=== PATIENT | female | born 1965 | race Caucasian/White ===

== ENCOUNTER → 2022-12-29 11:15 | Outpatient (CLI) | payer MEDICAID, SELFPAY ==
[2022-12-29 15:02] LABS: Amphetamine/Metha Screen,Urine Negative ng/ml (<1000); Barbiturates Screen,Urine Negative ng/ml (<200)
[2022-12-29 15:04] LABS: Benzodiazepines Screen,Urine Negative ng/ml (<200)
[2022-12-29 15:05] LABS: Cannabinoid Screen,Urine Positive ng/ml (<50); Cocaine Screen,Urine Negative ng/ml (<300)
[2022-12-29 15:06] LABS: Methadone Screen,Urine Negative ng/ml (<300)
[2022-12-29 15:07] LABS: Opiate Screen,Urine Positive ng/ml (<300); Phencyclidine Screen,Urine Negative ng/ml (<25)
== END ==
PROVIDERS: PCP Emergency Medicine; Visit Provider Emergency Medicine
DX: M79.2 Neuralgia and neuritis, unspecified (principal)
CPT/HCPCS: 80305

== ENCOUNTER → 2023-01-13 21:23 | Outpatient (CLI) | payer MEDICAID, SELFPAY ==
[2023-01-13 15:21] LABS: Phencyclidine Screen,Urine Negative ng/ml (<25)
[2023-01-13 15:29] LABS: Amphetamine/Metha Screen,Urine Negative ng/ml (<1000)
[2023-01-13 15:30] LABS: Barbiturates Screen,Urine Negative ng/ml (<200)
[2023-01-13 15:31] LABS: Benzodiazepines Screen,Urine Negative ng/ml (<200); Cannabinoid Screen,Urine Positive ng/ml (<50)
[2023-01-13 15:32] LABS: Cocaine Screen,Urine Negative ng/ml (<300); Opiate Screen,Urine Negative ng/ml (<300)
[2023-01-13 15:33] LABS: Methadone Screen,Urine Negative ng/ml (<300)
== END ==
PROVIDERS: PCP Emergency Medicine; Visit Provider Emergency Medicine
DX: Z79.899 Other long term (current) drug therapy (principal)
CPT/HCPCS: 80305

== ENCOUNTER → 2023-01-22 14:02 | Outpatient (CLI) | payer MEDICAID, SELFPAY | PROVIDERS: PCP Emergency Medicine; Visit Provider Nurse Practitioner Family | DX: R00.2 Palpitations (principal) | CPT/HCPCS: 93225; 93226 ==

== ENCOUNTER 2023-03-03 15:54 | Emergency (ER) | payer MEDICAID, SELFPAY ==
[2023-03-03] VITALS (7 sets, daily range): BP systolic 146–166; BP diastolic 89–110; PULSE 56–77; RESP 15–20; TEMP 36.8; O2SAT 93–99; BMI 22.9
--- NOTE | 2023-03-03 15:54 | ECG_ITS ---
APPROVED REPORT Exam: Resting ECG HR:79 bpm ECG Measurements Heart Rate 79 AXES IA 144 P 72 QRSd 85 QRS 75 QT 364 T 71 QTc 398 Conclusion SINUS RHYTHM POSSIBLE LEFT ATRIAL ENLARGEMENT [-0.1mV P-WAVE IN V1/V2] BORDERLINE ECG UNCONFIRMED REPORT Electronically signed by : Nikhil Alejo MD 03/03/2023 21:16:35
--- NOTE | 2023-03-03 15:59 | CT_ITS ---
PROCEDURE INFORMATION: Exam: CT Head Without Contrast Exam date and time: 03/03/2023 4:57 PM Age: 57 years old Clinical indication: Pain; Headache TECHNIQUE: Imaging protocol: Computed tomography of the head without contrast. Radiation optimization: All CT scans at this facility use at least one of these dose optimization techniques: automated exposure control; mA and/or kV adjustment per patient size (includes targeted exams where dose is matched to clinical indication); or iterative reconstruction. REPORTING DATA: Count of CT and Cardiac NM exams in prior 12 months: This patient has received 0 known CTs and 0 known cardiac nuclear medicine studies in the 12 months prior to the current study. COMPARISON: No relevant prior studies available. FINDINGS: Brain: Normal. No hemorrhage. Unremarkable white matter. No mass effect. Cerebral ventricles: No ventriculomegaly. Paranasal sinuses: Visualized sinuses are unremarkable. No fluid levels. Mastoid air cells: Visualized mastoid air cells are well aerated. Bones/joints: Unremarkable. No acute fracture. Soft tissues: Unremarkable. IMPRESSION: No acute intracranial abnormality.
--- NOTE | 2023-03-03 15:59 | XR_ITS ---
PROCEDURE INFORMATION: Exam: XR Chest Exam date and time: 03/03/2023 5:14 PM Age: 57 years old Clinical indication: Pain; Shortness of breath; Chest pressure; Additional info: SOA TECHNIQUE: Imaging protocol: Radiologic exam of the chest. Views: 1 view. COMPARISON: No relevant prior studies available. FINDINGS: Lungs: Hyperinflation and increased interstitial markings suggestive of COPD. Pleural spaces: Unremarkable. No pleural effusion. No pneumothorax. Heart/Mediastinum: Unremarkable. No cardiomegaly. Bones/joints: Unremarkable. IMPRESSION: Hyperinflation and increased interstitial markings suggestive of COPD.
--- NOTE | 2023-03-03 16:57 | HMH.EDGENADL ---
Discharge Plan Disposition Patient Disposition: Home, Self-Care Prescriptions Prescriptions: New naproxen 500 mg tablet 500 mg PO Q12H PRN (Reason: pain) Qty: 14 0RF No Action ondansetron 4 mg tablet,disintegrating 4 mg PO Q8H PRN multivitamin Tablet 1 tab PO DAILY albuterol sulfate 0.63 mg/3 mL solution for nebulization 0.63 mg inhalation QID PRN Incruse Ellipta 62.5 mcg/actuation blister with device 1 inh inhalation DAILY Qty: 30 2RF albuterol sulfate 90 mcg/actuation HFA aerosol inhaler 1 inh inhalation QID Qty: 8.5 3RF sumatriptan succinate [Imitrex] 100 mg tablet See Rx Instructions PO .COMPLEX Qty: 10 2RF Rx Instructions: take 1 tab at onset of headache; if no relief, may repeat 1 tab after at least 2 hrs; max = 2 tabs/24 hrs PO hydrocodone-acetaminophen 5-325 mg tablet 1 tab PO TID Qty: 90 0RF escitalopram oxalate [Lexapro] 10 mg tablet 10 mg PO DAILY Qty: 30 1RF citalopram 10 mg tablet See Rx Instructions .ROUTE .COMPLEX Qty: 14 0RF Dose Instruction: TAKE 1 TABLET BY MOUTH EVERY DAY AT BEDTIME FOR 14 DAYS Rx Instructions: TAKE 1 TABLET BY MOUTH EVERY DAY AT BEDTIME FOR 14 DAYS [id number]-[id number] [Fioricet] 50-300-40 mg capsule 1 cap PO Q8H PRN (Reason: headache) Qty: 10 0RF pregabalin [Lyrica] 200 mg capsule 200 mg PO TID Qty: 90 0RF clonazepam [Klonopin] 0.5 mg tablet 0.5 mg PO BID Qty: 60 0RF Referrals Follow up/Referrals: Clay Sanchez MD [Primary Care Provider] - See instructions Activity Restrictions/Add. Instructions Additional Instructions/Restrictions: Follow-up for further management with your primary care physician within the next few days. Otherwise return to the emergency room for worsening pain headache or any other concerns within the next 8 hours Clinical Impressions Clinical Impression: Headache, Chest pain Discharge ED Provider: Rigo Bird Adult [facility] General Chief complaint: Chest Pain Stated complaint: Chest Pain Time Seen by Provider: 03/03/23 16:00 Mode of Arrival: Ambulatory Source of Information: Patient Limitations: No Limitations Description of Symptoms (Recalled from ER Triage Doc. by RN): 57 F presents for 1 day of left sided chest pain after lifting a heavy bucket of water from the bathtub yesterday. Patient reports when the sharp pain started it shot to her left armpit. Since yesterday the pain has become worse, especially with movement. Patient also reports nausea and headache. History of Present Illness HPI narrative: 57-year-old female with history of anxiety presents with left-sided chest pain after lifting a heavy bucket of water yesterday. She has a dull headache as well nonradiating not severe and not thunderclap in onset. No fever or neck stiffness. She says the pain is worse in her chest with movement tender palpation on the left side of her chest. No direct trauma to her chest. No coughing up blood or radiation of the pain to her back. Related Data Home Medications Medication Instructions Recorded Confirmed albuterol sulfate 0.63 mg/3 mL 0.63 mg inhalation QID PRN 11/25/22 01/22/23 solution for nebulization multivitamin 1 tab PO DAILY 11/25/22 01/22/23 ondansetron 4 mg disintegrating 4 mg PO Q8H PRN 11/25/22 01/22/23 tablet Previous Rx's Medication Instructions Recorded hydrocodone 5 mg-acetaminophen 325 1 tab PO TID #90 tabs 01/13/23 mg tablet citalopram 10 mg tablet See Rx Instructions .Route 01/14/23 .COMPLEX #14 tabs escitalopram oxalate 10 mg tablet 10 mg PO DAILY #30 tabs 01/14/23 (Lexapro) albuterol sulfate 90 mcg/actuation 1 inh inhalation QID #8.5 grams 01/22/23 aerosol inhaler sumatriptan succinate 100 mg See Rx Instructions PO .COMPLEX 01/22/23 tablet (Imitrex) #10 tabs umeclidinium 62.5 mcg/actuation 1 inh inhalation DAILY #30 ea 01/22/23 blister powder for inhalation (Incruse Ellipta) butalbital-acetam
--- NOTE | 2023-03-03 17:01 | PC.NURSE ---
Addendum entered by Liat Milton, ALEX 03/03/23 17:01: ct no xray Original Note: pt at xray
--- NOTE | 2023-03-03 17:02 | PC.NURSE ---
pt arrived back to room from ct
--- NOTE | 2023-03-03 17:07 | PC.NURSE ---
pt ambulated to restroom no issues
[2023-03-03 17:26] LABS: Basophils % 0.7 % (0.1-2.0); Eosinophils % 0.3 % (0.1-12.0); Hemoglobin 15.4 g/dL (12.2-16.2); Lymphocytes # 0.8 K/mm3 (0.7-4.5); Lymphocytes % 22.5 % (10-50); Mean Corpuscular HGB Conc 32.1 g/dL (31.8-35.4); Mean Corpuscular Hemoglobin 29.5 pg (27.0-31.2); Mean Corpuscular Volume 91.9 fl (81-99); Mean Platelet Volume 9.9 fl (7.4-10.4); Monocytes # 0.2 K/mm3 (0.1-1.0); Monocytes % 5.8 % (1.7-9.3); Neutrophils # 2.5 K/mm3 (1.8-7.8); Neutrophils % 70.8 % (37.0-80.0); Platelet Count 180 K/mm3 (142-424); Red Blood Count 5.23 M/mm3 (4.20-5.40); White Blood Count 3.5 K/mm3 (4.8-10.8)
[2023-03-03 17:29] LABS: Chloride 103 mmol/L (98-107); Potassium 4.3 mmoL/L (3.5-5.1); Sodium 144 mmol/L (136-145)
[2023-03-03 17:31] LABS: Blood Urea Nitrogen 9 mg/dl (7-17); Creatinine Clearance Estimated 81 mL/min (50-200); Estimated Glomerular Filt Rate 103 ml/min (>60); GFR (African American) 125 ML/MIN (>60)
[2023-03-03 17:32] LABS: Alanine Aminotransferase 46 U/L (12-78); Albumin Level 4.6 g/dl (3.5-5.0); Albumin/Globulin Ratio 1.4 (1.1-1.8); Alkaline Phosphatase 99 U/L (38-126); Anion Gap 20.3 mEq/L (5-15); Aspartate Amino Transferase 59 U/L (14-36); Bilirubin,Total 0.4 mg/dl (0.2-1.3); Calcium 9.4 mg/dl (8.4-10.2); Carbon Dioxide 25 mmol/L (22.0-30.0); Globulin 3.4 g/dL (1.3-3.2); Glucose 104 mg/dl (74-100)
--- NOTE | 2023-03-03 17:46 | PC.NURSE ---
rounded on pt, rehooked back up since she was not when returning from ct, no complaints at this time, call light at bs
[2023-03-03 17:47] LABS: Troponin I < 0.01 ng/ml (0.00-0.034)
--- NOTE | 2023-03-03 18:37 | PC.NURSE ---
rounded on pt and she is sleeping in bed, call light at bs
--- NOTE | 2023-03-03 18:43 | PC.NURSE ---
called pt significant other Osmin Sandoval to let him know pt was ready for discharge from ed
--- NOTE | 2023-03-03 18:46 | PC.NURSE ---
Patient's ride has been contacted and on their way
== END 2023-03-03 19:11 | disposition home or self-care (01) ==
PROVIDERS: Emergency Provider Emergency Medicine; PCP Emergency Medicine
DX: R07.9 Chest pain, unspecified (principal); R51.9 Headache, unspecified; F17.200 Nicotine dependence, unspecified, uncomplicated
CPT/HCPCS: 36415; 70450; 71045; 80053; 84484; 85025; 93005; 96361; 96374; 96375; 99285

== ENCOUNTER → 2023-03-10 10:45 | Outpatient (CLI) | payer MEDICAID, SELFPAY ==
[2023-03-10 17:44] LABS: Amphetamine/Metha Screen,Urine Negative ng/ml (<1000); Barbiturates Screen,Urine Negative ng/ml (<200)
[2023-03-10 17:45] LABS: Benzodiazepines Screen,Urine Negative ng/ml (<200)
[2023-03-10 17:46] LABS: Cannabinoid Screen,Urine Positive ng/ml (<50); Cocaine Screen,Urine Negative ng/ml (<300)
[2023-03-10 17:47] LABS: Methadone Screen,Urine Negative ng/ml (<300)
[2023-03-10 17:48] LABS: Opiate Screen,Urine Negative ng/ml (<300); Phencyclidine Screen,Urine Negative ng/ml (<25)
== END ==
PROVIDERS: PCP Emergency Medicine; Visit Provider Emergency Medicine
DX: Z79.899 Other long term (current) drug therapy (principal)
CPT/HCPCS: 80305

== ENCOUNTER → 2023-04-05 07:24 | Outpatient (CLI) | payer MEDICAID, SELFPAY ==
--- NOTE | 2023-04-05 07:24 | NM_ITS ---
APPROVED REPORT Exam: Nuclear Stress Test Indication: DYSRHYTHMIA, TOB USE, FM HX, C.P., SOB, SYNCOPE Patient Location: Outpatient Stress Tech: Jaylene Ceballos [place] Tech:Maricruz Palma, [place] RT (R)(N)(M) Ht: 4 ft 10 in Wt: 115 lbs Bra Size: A HR: 53 bpm BP: 135/86 mmHg BSA: 1.44 m2 TID: 1.03 BMI: 24.0 History: DYSRHYTHMIA, TOB USE, FM HX, C.P., SOB, SYNCOPE Procedure: Patient received 0.4 mg of intravenous Lexiscan, resting heart rate 53 bpm, resting blood pressure 135/86 mmHg, with Lexiscan maximum heart rate achieved was 88 bpm which is 54 % of the maximum predicted heart rate and blood pressure was 143/76 mmHg. PT C/O CHEST PRESSURE WITH LEXISCAN Cardiac Stress and Resting SPECT Images: Cardiac Stress and Resting SPECT images were obtained using technetium 99m Myoview 31.9 mCi stress and 10.27 mCi at rest. Resting and stress imaging in both supine and prone positions demonstrate a small-sized, mild, partially reversible defect in the distal apical region. Gated imaging demonstrates normal global and regional LV systolic function. LVEF is calculated at 59%. Conclusion: Small-sized, mild, partially reversible defect in the distal apical region. Gated imaging demonstrates normal global and regional LV systolic function. LVEF is calculated at 59%. Electronically signed by : Miranda Reyes, 04/05/2023 17:04:35
--- NOTE | 2023-04-05 09:31 | CA_ITS ---
APPROVED REPORT Exam: Pharmacologic Technologist: Jaylene Ceballos Ht: 4 ft 10 in Wt: 115 lbs BSA: 1.44 m2 HR: 53 bpm BP: 135/86 mmHg Rhythm: NSR Indications: Dyspnea, Chest pain Medical History Medications: Lexapro,,,,, Lyrica,,,,, Citalopram,,,,, Naproxen,,,,, Albuterol,,,,, KloNOPIN,,,,, Floricet,,,,, Imitrex,,,,, ONdansetron,,,,, Hydrocodone-Acetaminophen,,,,, ElIipta,,,,, Stress Test Details Test: LEXISCAN HR Resting HR: 56 bpm Max Heart Rate (APMHR): 163 bpm Max HR Achieved: 91 bpm Target HR (85% APMHR): 139 bpm % of APMHR: 56 Recovery HR: 72 bpm BP Resting BP: 135.0/86.0 mmHg Max BP: 143.0/76.0 mmHg Recovery BP: 120.0/68.0 mmHg ECG Resting ECG: Sinus bradycardia Stress ECG: No ST changes Arrhythmia: None Recovery ECG: No ST changes Recovery Arrhythmia: None Clinical Exercise duration: 04:00 min Highest Stage Achieved: Exercise capacity: n/a METs Stress ECG Conclusion Symptoms: Chest pressure, lightheaded Arrhythmias/Ectopy: None ST-T Changes: No significant change Conclusion: Unremarkable pharmacologic ECG stress test. Myoview images are reported separately. Test Summary REST . . . . . . . Resting REST 02:09 . . 56 . 135/ 86 . . Stage 1 . . . . . . . Myoview Injected Stage 1 01:00 . . 71 . . . . Stage 2 01:00 . . 87 . . . . Stage 3 . . . . . . . chest pressure Stage 3 01:00 . . 79 . 143/ 76 . . Stage 4 . . . . . . . lightheaded Stage 4 01:00 . . 75 . . . Stop exercise at 04:00 RECOVERY 01:00 . . 76 . . . . RECOVERY 02:00 . . 78 . 110/ 70 . . RECOVERY 03:00 . . 72 . 120/ 68 . . RECOVERY 03:23 . . 71 . 120/ 68 . . Electronically signed by : Miranda Reyes, 04/05/2023 16:50:06
== END ==
PROVIDERS: PCP Emergency Medicine; Visit Provider Nurse Practitioner
DX: R06.00 Dyspnea, unspecified (principal); R07.9 Chest pain, unspecified; R42 Dizziness and giddiness; R94.31 Abnormal electrocardiogram [ECG] [EKG]
CPT/HCPCS: 78452; 93017; A9502; J2785

== ENCOUNTER 2023-04-22 09:09 | Day surgery (SDC) | payer MEDICAID, SELFPAY ==
[2023-04-22] VITALS (12 sets, daily range): BP systolic 97–153; BP diastolic 59–80; PULSE 48–63; RESP 14–18; TEMP 36.7; O2SAT 91–100; BMI 23.1
--- NOTE | 2023-04-22 07:04 | IR_ITS ---
APPROVED REPORT Patient Location: Outpatient PROCEDURES Left heart catheterization Left ventriculogram Selective coronary angiogram INDICATION Abnormal Myoview, Angina pectoris Informed consent was obtained prior to the procedure. COMPLICATIONS NONE Estimated Blood Loss: LESS THAN 10 ML TECHNIQUE One percent lidocaine used to anesthetize the right anterior aspect of the wrist. The right radial artery was accessed via the Seldinger technique. A 6 Romansh sheath was placed in the right radial artery. 150 mg magnesium sulfate, 800 mcg of nitroglycerin, 1mg Lidocaine and 5000 U Heparin were given through the arterial sheath. The papa catheter was also used to perform left heart catheterization, left ventriculogram and selective coronary angiogram. At the end of the procedure the sheath was removed good hemostasis was achieved using Traclet band, patient was transferred to the postop holding area in stable condition. ANGIOGRAPHIC RESULTS The left main artery Normal The left anterior descending artery Is proximally normal and has mid vessel 30% stenoses along 2 tortuous bends The circumflex artery Nondominant normal The right coronary artery Dominant with a mid vessel 40% stenosis The ESTEVEZ ventriculogram reveals Preserved at 55% with slight LV dyssynchrony and presence of left bundle branch block The left ventricular end-diastolic pressure 20 mmHg IMPRESSION Mild to moderate coronary disease as described above Preserved ejection fraction with LV dyssynchrony in the presence of a left bundle branch block Elevated LVEDP PLAN 1. Medical management for coronary disease 2. Medical management for left bundle branch block 3. Standard therapy for ischemic heart disease 4. LDL less than 55 to be achieved with high intensity statin 5. Treatment of diastolic dysfunction 6. Recommend sleep study Electronically signed by : Jd Mendiola MD 04/22/2023 12:17:02
[2023-04-22 09:59] LABS: Basophils % 0.7 % (0.1-2.0); Eosinophils # 0.3 K/mm3 (0.0-0.4); Eosinophils % 6.1 % (0.1-12.0); Hematocrit 42.1 % (37.0-47.0); Lymphocytes # 2.5 K/mm3 (0.7-4.5); Lymphocytes % 48.7 % (10-50); Mean Corpuscular HGB Conc 33.2 g/dL (31.8-35.4); Mean Corpuscular Hemoglobin 28.9 pg (27.0-31.2); Mean Platelet Volume 11.2 fl (7.4-10.4); Monocytes # 0.5 K/mm3 (0.1-1.0); Monocytes % 9.6 % (1.7-9.3); Neutrophils # 1.8 K/mm3 (1.8-7.8); Neutrophils % 34.9 % (37.0-80.0); Platelet Count 138 K/mm3 (142-424); Red Blood Count 4.84 M/mm3 (4.20-5.40); White Blood Count 5.2 K/mm3 (4.8-10.8)
[2023-04-22 10:06] LABS: Chloride 102 mmol/L (98-107); Sodium 139 mmol/L (136-145)
[2023-04-22 10:09] LABS: Blood Urea Nitrogen 20 mg/dl (7-17); Calcium 8.6 mg/dl (8.4-10.2); Carbon Dioxide 30 mmol/L (22.0-30.0); Creatinine Clearance Estimated 82 mL/min (50-200); Estimated Glomerular Filt Rate 103 ml/min (>60); GFR (African American) 125 ML/MIN (>60); Glucose 75 mg/dl (74-100); Prothrombin Time 10.8 seconds (10.1-12.5)
--- NOTE | 2023-04-22 13:47 | SUR.PHASEII ---
Pt states she is having chest pain, notified dr valdez, stated to order ekg and echo
--- NOTE | 2023-04-22 13:51 | ECG_ITS ---
APPROVED REPORT Exam: Resting ECG HR:53 bpm ECG Measurements Heart Rate 53 AXES FL 195 P 73 QRSd 78 QRS 59 QT 440 T 69 QTc 423 Conclusion SINUS BRADYCARDIA BORDERLINE ECG UNCONFIRMED REPORT Electronically signed by : Nikhil Alejo MD 04/22/2023 20:06:23
== END 2023-04-22 15:49 | disposition home or self-care (01) ==
PROVIDERS: PCP Emergency Medicine; Visit Provider Internal Medicine
DX: I25.118 Atherosclerotic heart disease of native coronary artery with other forms of angina pectoris (principal); R94.31 Abnormal electrocardiogram [ECG] [EKG]; R94.39 Abnormal result of other cardiovascular function study; R06.09 Other forms of dyspnea; Z79.899 Other long term (current) drug therapy
CPT/HCPCS: 80048; 85025; 85610; 93005; 93308; 93458; 99152; C1725; C1769; J1644; Q9967

== ENCOUNTER → 2023-05-05 13:30 | Outpatient (CLI) | payer MEDICAID, SELFPAY ==
[2023-05-05 19:52] LABS: Amphetamine/Metha Screen,Urine Negative ng/ml (<1000); Barbiturates Screen,Urine Negative ng/ml (<200)
[2023-05-05 19:53] LABS: Benzodiazepines Screen,Urine Negative ng/ml (<200)
[2023-05-05 19:54] LABS: Cannabinoid Screen,Urine Positive ng/ml (<50); Cocaine Screen,Urine Positive ng/ml (<300)
[2023-05-05 19:55] LABS: Methadone Screen,Urine Negative ng/ml (<300); Opiate Screen,Urine Negative ng/ml (<300)
[2023-05-05 19:56] LABS: Phencyclidine Screen,Urine Negative ng/ml (<25)
== END ==
PROVIDERS: PCP Emergency Medicine; Visit Provider Emergency Medicine
DX: Z79.899 Other long term (current) drug therapy (principal)
CPT/HCPCS: 80305

== ENCOUNTER → 2023-05-06 12:54 | Outpatient (CLI) | payer MEDICAID, SELFPAY ==
--- NOTE | 2023-05-06 13:03 | XR_ITS ---
FINAL REPORT CLINICAL HISTORY: LBP radiating into bilat hips x 2 mos, Rt side worsened reaching foot FINDINGS: LUMBAR SPINE Five views demonstrate no acute fracture. There are mild degenerative changes. Note is made of rightward curvature. The alignment is otherwise normal. There are postoperative changes in the right abdomen. IMPRESSION: No acute process. Reviewed, Interpreted and Dictated by Andrzej Cardenas III, MD Transcribed by Melvina Marcelo Authenticated and [facility]
--- NOTE | 2023-05-06 13:03 | XR_ITS ---
FINAL REPORT CLINICAL HISTORY: Rt hip pain radiating down leg x 2 mos FINDINGS: Right hip Five views were obtained. There is no acute fracture or dislocation. There is a chronic fracture of the femoral diaphysis with an intramedullary renetta. IMPRESSION: No acute process. Reviewed, Interpreted and Dictated by Andrzej Cardenas III, MD Transcribed by Melvina Marcelo Authenticated and [facility]
== END ==
PROVIDERS: PCP Emergency Medicine; Visit Provider Emergency Medicine
DX: M25.551 Pain in right hip (principal); M54.9 Dorsalgia, unspecified; M54.50 Low back pain, unspecified
CPT/HCPCS: 72110; 73502